=== PATIENT | male | born 1960 | race Caucasian/White ===

== ENCOUNTER 2020-08-13 07:51 | Observation (INO) ==
[2020-08-13] MEDS ORDERED: 0.9 % Sodium Chloride 1,000 ML IVC ONE (08:12)
[2020-08-13] MEDS ORDERED: Isovue-370 500 ML BOTTLE IVP ONE ×2 (08:18→17:21)
[2020-08-13 08:37] LABS: Bilirubin,Urine Negative (Negative); Blood,Urine Moderate (Negative); Clarity,Urine Clear (Clear); Color,Urine Light-Yellow (Yellow); Glucose,Urine (UA) 30 mg/dL (Normal); Hyaline Casts,Urine Few per lpf (None Seen); Ketones,Urine Negative (Negative); Leukocyte Esterase,Urine Moderate (Negative); Mucus,Urine Few per lpf (None-Few); Nitrite,Urine Negative (Negative); PH,Urine 5.5 pH Units (5.0-8.0); Protein,Urine Trace mg/dL (Neg-Trace); RBC,Urine 30-50 per hpf (0-3); Specific Gravity,Urine 1.019 (1.010-1.025); Squamous Epithelial Cell,Urine Few per hpf (None-Few); Urobilinogen,Urine Normal (Normal); WBC,Urine 30-50 per hpf (0-3)
[2020-08-13 09:00] LABS: Prothrombin Time 11.8 Seconds (9.4-12.1)
[2020-08-13 09:03] LABS: Activated Partial Thrombo Time 25.3 Seconds (26.0-36.0)
[2020-08-13 09:06] LABS: Hematocrit 44.9 % (37.5-50.1); Hemoglobin 14.7 g/dL (12.9-16.9); Mean Corpuscular HGB Conc 32.7 g/dL (31.6-35.5); Mean Corpuscular Hemoglobin 29.2 pg (28.0-33.3); Mean Corpuscular Volume 89.1 fL (83.0-100.0); Mean Platelet Volume 10.2 fL (9.4-12.4); Platelet Count 327 K/mcL (140-400); Red Blood Count 5.04 M/mcL (4.19-5.50); White Blood Count 24.5 K/mcL (4.3-11.1)
[2020-08-13 09:10] LABS: Alanine Aminotransferase 11 Units/L (7-52); Albumin 4.5 g/dL (3.5-5.7); Albumin/Globulin Ratio 1.3 (1.1-2.2); Alkaline Phosphatase 49 Units/L (34-104); Aspartate Amino Transferase 14 Units/L (13-39); BUN/Creatinine Ratio 11 (6-26); Bilirubin,Direct 0.1 mg/dL (0.0-0.2); Bilirubin,Indirect 0.5 mg/dL (0.0-1.0); Bilirubin,Total 0.6 mg/dL (0.3-1.0); Blood Urea Nitrogen 21 mg/dL (8-23); Carbon Dioxide 23 mEq/L (23-29); Chloride 106 mEq/L (98-107); Globulin 3.5 g/dL (2.4-3.5); Glucose 144 mg/dL (70-105); Osmolality,Calculated 296 (280-300); Sodium 140 mEq/L (136-145); Troponin I < 0.03 ng/mL (< 0.04); eGFR For African Americans 45 (> 60); eGFR For Non-African Americans 37 (> 60)
[2020-08-13 09:27] LABS: Monocytes # 0.5 K/mcL (0.0-1.3)
[2020-08-13] MEDS ORDERED: *HR* HYDROmorphone (PF) 1 MG/ML SYRINGE IVP ONE (09:31)
[2020-08-13] MEDS ORDERED: cefTRIAXone 1,000 MG in 0.9 % Sodium Chloride Mini Bag 100 ML IVPB ONE (10:25)
[2020-08-13] MEDS ORDERED: *HR* HYDROcodone/Acet 5/325 mg TABLET PO PRN ×2 (11:20→17:21)
[2020-08-13] MEDS ORDERED: Ondansetron 4 MG/2 ML VIAL IVP PRN ×3 (11:20→17:21)
[2020-08-13] MEDS ORDERED: Acetaminophen 325 MG TABLET PO PRN ×2 (11:20→17:21)
[2020-08-13] MEDS ORDERED: *HR* OxyCODONE Immed Rel 5 MG TABLET PO PRN ×2 (11:20→17:21)
[2020-08-13] MEDS ORDERED: Naloxone 0.4 MG/ML INJ IVP PRN ×2 (11:20→17:21)
[2020-08-13] MEDS ORDERED: Ringers Solution, Lactated 1,000 ML IVC SCH (11:30)
[2020-08-13 12:58] LABS: Adenovirus Not Detected (Not Detect); Bordetella Pertussis Not Detected (Not Detect); Chlamydophila pneumoniae Not Detected (Not Detect); Coronavirus 229E Not Detected (Not Detect); Coronavirus HKU1 Not Detected (Not Detect); Coronavirus NL63 Not Detected (Not Detect); Coronavirus OC43 Not Detected (Not Detect); Human Metapneumovirus Not Detected (Not Detect); Human Rhinovirus/Enterovirus Not Detected (Not Detect); Influenza A Subtype 2009 H1 Not Detected (Not Detect); Influenza B Not Detected (Not Detect); Mycoplasma pneumoniae Not Detected (Not Detect); Parainfluenza Virus 1 Not Detected (Not Detect); Parainfluenza Virus 2 Not Detected (Not Detect); Parainfluenza Virus 3 Not Detected (Not Detect); Parainfluenza Virus 4 Not Detected (Not Detect); Respiratory Syncytial Virus Not Detected (Not Detect); SARS-CoV-2 Not Detected (Not Detect)
[2020-08-13] MEDS ORDERED: Isovue-300 50ML VIAL ONE (15:24)
[2020-08-13] MEDS ORDERED: *HR* FentaNYL (PF) 100 MCG/2 ML VIAL ONE (15:35)
[2020-08-13] MEDS ORDERED: *HR* Midazolam HCl 2 MG/2 ML VIAL ONE (15:35)
[2020-08-13] MEDS ORDERED: *HR* Propofol 200 MG/20 ML VIAL IVP ONE (15:35)
[2020-08-13] MEDS ORDERED: Ondansetron 4 MG/2 ML VIAL ONE (15:36)
[2020-08-13] MEDS ORDERED: Dexamethasone 4 MG/ML VIAL ONE (15:36)
[2020-08-13] MEDS ORDERED: Lidocaine -MPF 2% 2 ML VIAL ONE (15:36)
[2020-08-13] MEDS ORDERED: *HR* HYDROmorphone PF 0.5 MG/0.5 ML SYRINGE IVP PRN (15:51)
[2020-08-13] MEDS ORDERED: *HR* Promethazine 25 MG/ML VIAL IVP PRN (15:51)
[2020-08-13] MEDS ORDERED: *HR* Labetalol 20 MG/4 ML SYRINGE IVP PRN (15:51)
[2020-08-13] MEDS: *HR* Heparin 5,000 UNIT/ML VIAL SQ SCH (17:49)
[2020-08-13] MEDS: Ringers Solution, Lactated 1,000 ML IVC SCH (17:49)
[2020-08-13] MEDS ORDERED: *HR* Heparin 5,000 UNIT/ML VIAL SQ SCH (18:00)
[2020-08-14 01:51] LABS: Basophils % 0.1 %; Hematocrit 42.7 % (37.5-50.1); Hemoglobin 13.9 g/dL (12.9-16.9); Immature Granulocytes % 0.5 % (0-4); Lymphocytes # 0.7 K/mcL (0.6-4.6); Lymphocytes % 4.5 %; Mean Corpuscular HGB Conc 32.6 g/dL (31.6-35.5); Mean Corpuscular Hemoglobin 29.2 pg (28.0-33.3); Mean Corpuscular Volume 89.7 fL (83.0-100.0); Mean Platelet Volume 10.3 fL (9.4-12.4); Monocytes # 0.3 K/mcL (0.0-1.3); Monocytes % 2.2 %; Neutrophils # 13.6 K/mcL (1.6-8.9); Platelet Count 291 K/mcL (140-400); Red Blood Count 4.76 M/mcL (4.19-5.50); Red Cell Distribution Width 13.2 % (11.5-14.5); Segmented Neutrophils % 92.7 %; White Blood Count 14.7 K/mcL (4.3-11.1)
[2020-08-14 02:10] LABS: Calcium 9.7 mg/dL (8.6-10.3); Magnesium 1.7 mg/dL (1.6-2.6); Potassium 4.3 mEq/L (3.5-5.1)
[2020-08-14] MEDS: Ringers Solution, Lactated 1,000 ML IVC SCH (04:07)
[2020-08-14] MEDS: *HR* Heparin 5,000 UNIT/ML VIAL SQ SCH (05:43)
[2020-08-14] MEDS ORDERED: cefTRIAXone 1,000 MG in Water for inj. (sterile) 10 ML IVP SCH ×2 (09:00)
[2020-08-14 10:38] VITALS: BP 147/92
[2020-08-19 23:02] LABS: Calculi Mass 207 mg
== END 2020-08-14 12:05 | disposition home or self-care (01) ==
LOC: EMEROOARM 07:51 → 3ANU 07:51
PROVIDERS: ADMIT Internal Medicine; ATTEND Internal Medicine